=== PATIENT | male | born 1970 | race Caucasian/White ===

== ENCOUNTER → 2024-02-01 07:34 | Outpatient (REF) | payer OTHER, SELFPAY | LOC: RAD 07:34 | PROVIDERS: ATTENDING PHYSICIAN Family Medicine | DX: R79.89 Other specified abnormal findings of blood chemistry (principal) | CPT/HCPCS: 74177; Q9967 ==

== ENCOUNTER 2024-11-22 14:22 | Emergency (ER) | payer OTHER, SELFPAY ==
[2024-11-22 14:28] VITALS: BP 138/78
[2024-11-22 14:45] LABS: Hematocrit 44.1 % (39.0-52.0); Hemoglobin 15.9 g/dL (13.0-18.0); Mean Corp Hgb Conc. 36.1 g/dL (33.0-37.0); Mean Corpuscular Volume 95.2 fL (80.0-94.0); Nucleated Red Blood Cells % 0 % (-); Platelet Count 160 10^3/uL (130-400); Red Cell Dist. Width 11.9 % (11.5-14.5)
[2024-11-22 15:27] VITALS: BMI 28.9
[2024-11-22 15:30] VITALS: BP 134/81
[2024-11-22 16:00] VITALS: BP 119/80
[2024-11-22 16:24] LABS: Troponin I < 0.012 ng/ml
[2024-11-22 16:30] LABS: D-Dimer < 0.27 ug/mlFEU (0.00-0.50)
[2024-11-22 16:37] LABS: ALT (SGPT) 52 U/L (0-50); AST (SGOT) 45 U/L (17-59); Albumin 4.4 g/dl (3.5-5.0); Alkaline Phosphatase 60 U/L (38-126); Blood Urea Nitrogen 15 mg/dl (9-20); Calcium 9.5 mg/dl (8.4-10.2); Carbon Dioxide 23 mmol/L (22-30); Estimated Creatinine Clearance 109 ml/min; Glucose 87 mg/dl (70-99); Total Protein 7.1 g/dl (6.3-8.2); eGFR > 60.00
[2024-11-22 16:45] LABS: Chloride 109 mmol/L (98-107); Potassium 4.2 mmol/L (3.5-5.1); Sodium 139 mmol/L (135-145)
[2024-11-22 17:00] VITALS: BP 126/81
--- NOTE | 2024-11-22 17:46 | ED.GENMED ---
History of Present Illness
General
Chief Complaint: Chest Pain
Source: patient
Exam Limitations: none
Time Seen by Provider: 11/22/24 16:28
Nursing documentation reviewed up to this point in time: agreed with
History of Present Illness
History of Present Illness:
Patient is a 54-year-old male with history of pulmonary embolism, DVT who presents to the emergency department with substernal chest pain. Patient states that around 1030/11 AM he was on a work call when he noticed a pressure sensation in his mid
chest. He describes it as a pain/pressure at his lower sternum which is tender to the touch. He also has one small area in his right mid back that is sore. He thinks symptoms are more noticeable when he takes a deep breath however denies any
shortness of breath.
He denies any syncopal events. No pain in his lower extremities. No fever or recent productive cough.
Symptoms began one to two hours following a strength training workout which he did at home however he says he did not lift any weight heavier than his typical workouts.
Patient checked his pulse ox at home which was in the normal range. He called his primary care who recommended evaluation in the emergency department given history of PE.
Patient states he had a PE in 2022 at the time he had a known DVT and was yet to start anticoagulation. He was on a brief course of anticoagulation which was discontinued over 1 year ago.
Past History
Past History
ED Past Medical History: None
Social History
Personal:
Living: with family
Review of Systems
Review of Systems
Allergies reviewed?: Yes
All Other Systems: ROS reviewed and negative except as documented in HPI and ROS
Phy Exam
Physical Exam
Physical Exam:
Vitals: Patient's vital signs are stable. Afebrile
General: Patient is very well appearing, no acute distress
Skin: Warm and dry, no rashes or lesions
Head: Normocephalic, atraumatic
Eyes: Sclera nonicteric.
Throat: Protecting airway
Neck: Normal ROM, no cervical spine tenderness, no meningismus
Cardiac: Regular rate and rhythm, no murmurs. Point tenderness overlying lower sternum / xyphoid process. No rash or ecchymosis. 2+ palpable radial pulses bilaterally.
Pulm: Normal respiratory effort, no wheezes, rales, rhonchi heard on exam
Abdomen: No abdominal tenderness.
Extremities: No evidence of cyanosis or edema. No tenderness or ecchymoses of b/l lower extremities. Negative Gillian sign bilaterlly.
Neuro: AAOx3. Grossly intact.
Psychiatric: Normal affect.
Scores
Heart Score for Chest Pain Patients
STEMI patient?: Not applicable
Course
Orders/Labs/Results
Orders:
Orders
11/22/24 14:22
EKG [Electrocardiogram (*1)] Urgent
Reason for Study: Chest Pain
EKG- Treatment ONCE
11/22/24 14:39
Complete Blood Count/With Diff Urgent
11/22/24 15:39
Comprehensive Metabolic Panel Routine
Troponin I Routine
11/22/24 15:40
D-Dimer Urgent
11/22/24 17:02
CR Chest - 2 Views Urgent
Comment:
Reason For Exam: chest pain
11/22/24 18:05
Electrocardiogram (*1) Urgent
Reason for Study: Chest Pain
EKG- Treatment ONCE
11/22/24 18:12
Troponin I Urgent
Abnormal Lab Results
11/22/24 11/22/24
14:39 15:39
RBC 4.63 L 10^6/uL
(4.70-6.10)
MCV 95.2 H fL
(80.0-94.0)
MCH 34.3 H pg
(27.0-31.0)
Chloride 109 H mmol/L
(98-107)
ALT 52 H U/L
(0-50)
11/22/24 14:39
11/22/24 15:39
Vital Signs
Initial and Last Documented VS:
Initial Vital Signs
Temp Pulse Resp BP Pulse Ox
98.9 F 60 16 138/78 98
11/22/24 14:28 11/22/24 14:28 11/22/24 14:28 11/22/24 14:28 11/22/24 14:28
Last Documented Vital Signs
Temp Pulse Resp BP Pulse Ox
98.9 F 64 18 121/81 97
11/22/24 14:28 11/22/24 19:00 11/22/24 19:00 11/22/24 18:00 11/22/24 19:00
MDM/Problems Addressed
Differential Diagnosis Includes:
Not limited to: muscle strain, costochondritis, pleurisy, ACS, PE, etc
MDM/Problems Addressed:
54-year-old male with midsternal chest pressure as well as mild right scapular discomfort, which began this morning around 10 AM while seated at work. There is a mild pleuritic component however no exertional chest pain. No shortness of breath.
Vitals and exam as above. Patient well-appearing, in no apparent distress. He is not hypoxic. Lungs clear bilaterally. He does have point tenderness overlying lower sternal area/xiphoid. No ecchymoses or rash. No history of recent trauma. No
clinical evidence of DVT on exam.
Labs were sent in triage including CBC, troponin, D-dimer. No clinically significant abnormalities. D-dimer and initial troponin undetectable.
While patient very comfortable appearing and vital signs not reflective of pulmonary embolism�given history I would have considered proceeding with CT chest rather than D-dimer for complete evaluation. However, given negative D-dimer�this is
reassuring and feel pulmonary embolism less likely. Discussed with patient that current lab work very reassuring, however unable to completely skewed PE without CT chest. Shared decision making utilized with patient and we will forego CT chest at
this time. Will check serial troponins and chest x-ray
Update: Repeat troponin undetectable without any acute ischemic findings on EKG. Chest x-ray unremarkable. At this point�patient with stable vital signs, not hypoxic. He is in no distress. Very low suspicion for PE. Do not suspect ACS or aortic
dissection. Given reproducible tenderness/likely musculoskeletal etiology. Will have patient follow-up with primary care/cardiology and closely monitor symptoms at home. Very strict return precautions discussed. Patient and patient's
expressed verbal understanding and are comfortable with plan.
Chronic conditions affecting care:
Hx PE
Acute Exacerbation and/or Progression of Chronic Illness:
N/A
*Radiology
Radiology exam reviewed: preliminary read by ED provider (CXR reviewed by me - no acute abnormalities) and radiology read reviewed
*Pulse Oximetry
SaO2: 94
Oxygen Mode of Delivery: Room air
Patient hypoxic: no
*EKG
Interpreted by ED Provider?: Yes
EKG Intrepretation Date: 11/22/24
Interpretation: abnormal
Comparison EKG: changes noted
Heart Rate: 57
Rate: bradycardiac
Rhythm: sinus
Interval: normal QT interval
Ischemia: non-specific ST changes
*Print Finishing Worker Interpretation
Rate: normal
Interpretation: normal
Heart Rate: 62
Rhythm: sinus
*Critical Care Note
Total Time (30-74mins, 75-104mins- exclusive of procedures): Not Applicable
ED Attending Note
-
Portions of this chart may have been created with voice recognition software.� Occasional wrong word or��sound alike� substitutions may have occurred due to the inherent limitations of voice recognition software.
Discharge Plan
Departure
Patient Disposition: Home (Routine Discharge)
Date of Disposition: 11/22/24
Time of Disposition: 19:08
Patient with high blood pressure during this ER visit?: Yes
Condition: Good
Discharge Problem:
Chest pain
Instructions: Chest pain - Discharge instructions, BLOOD PRESSURE
Prescriptions:
No Action
albuterol sulfate [Ventolin HFA] 90 MCG/PUFF HFA aerosol inhaler
2 puff inhalation R Q6HPRN PRN (Reason: sob/wheezing)
multivitamin Tablet
1 tab PO DAILY
cyanocobalamin (vitamin B-12) [Vitamin B-12] 1,000 mcg Tablet
1,000 mcg PO DAILY
cholecalciferol (vitamin D3) [Vitamin D3] 25 mcg (1,000 unit) Tablet
25 mcg PO DAILY
omega 2-xui-yks-fish oil [Fish Oil] 1,000 mg (120 mg-180 mg) Capsule
1 cap PO DAILY
Bpdcthjxsia-Kszsh-JCF Complex 861-454-71-0.5 mg Tablet
1 tab PO DAILY
Ubiquinol
1 tab PO DAILY
tramadol 50 mg Tablet
50 mg PO Q6HPRN PRN (Reason: MODERATE PAIN) Qty: 20 0RF
escitalopram oxalate 10 mg Tablet
10 mg PO DAILY Qty: 30 0RF
budesonide-formoterol [Symbicort] 80-4.5 mcg/actuation Hfa Aerosol Inhaler
2 puff inhalation R BID Qty: 1 0RF
Eliquis DVT-PE Treat 30D Start 5 mg (74 tabs) tablets,dose pack
See Rx Instructions .ROUTE .COMPLEX Qty: 74 0RF
Rx Instructions:
orally per package directions
Referrals:
Francisco Trammell DO [Family Provider, Family Practice]
Tiffany Paul MD [Active, Cardiology]
Activity Restrictions/Additional Instructions:
RETURN TO THE EMERGENCY DEPARTMENT FOR ANY CHEST PAIN, SHORTNESS OF BREATH/DIFFICULTY BREATHING, LIGHTHEADEDNESS/DIZZINESS, SEVERE BACK PAIN, WORSENING IN CURRENT SYMPTOMS, OR ANY OTHER CONCERNS
- As discussed that your lab work and cardiac enzymes showed no acute abnormalities. Your chest x-ray showed no acute findings.
- You can take Tylenol and/or Motrin as needed for discomfort. Please stay well-hydrated.
- Follow-up with your primary care provider and licensed investment sales assistant for further evaluation/management and to ensure that your symptoms are improving
Monitor your symptoms closely and return to the emergency department with any acute worsening/new symptoms or any other concerns
Interventions
Interventions:
*Risk Screen - Suicide Last Done: 11/22/24 14:28
*General Assessment Last Done: 11/22/24 15:27
*Neglect/Abuse Screening Last Done: 11/22/24 14:28
*ED- Fall Risk Assessment Last Done: 11/22/24 15:27
*ED COVID-19 Vaccine History Last Done: 11/22/24 15:27
*Nursing Disposition Last Done: 11/22/24 19:31
ED- Cardiac Assessment Last Done: 11/22/24 15:27
Discharge Date and Time
Discharge Date/Time: 11/22/24 19:34
Print Language: [place]
[2024-11-22 18:00] VITALS: BP 121/81
[2024-11-22 18:53] LABS: Troponin I < 0.012 ng/ml
== END 2024-11-22 19:34 | disposition home or self-care (01) ==
LOC: EMR 14:22
PROVIDERS: Physician Assistant; Student in an Organized Health Care Education/Training Program; EMERGENCY PHYSICIAN Emergency Medicine; FAMILY PHYSICIAN Family Medicine; REFERRING PHYSICIAN Internal Medicine Interventional Cardiology
DX: R07.9 Chest pain, unspecified (principal); R03.0 Elevated blood-pressure reading, without diagnosis of hypertension; Z86.711 Personal history of pulmonary embolism; Z86.718 Personal history of other venous thrombosis and embolism
CPT/HCPCS: 99284; 71046; 80053; 84484; 85025; 85379; 93005